=== PATIENT | female | born 1950 | race Caucasian/White ===

== ENCOUNTER 2020-02-22 15:46 | Inpatient (IN) | payer MEDICARE, OTHER ==
[~2020-02-22] VITALS: Ht 160 cm; Wt 112.1 kg
[~2020-02-22 15:46] MED LIST: ASPI-518 PO
[2020-02-22] MEDS ORDERED: VECURONIUM BROMIDE 10 MG/VIAL IV ONE ×2 (16:15→18:00)
[2020-02-22] MEDS ORDERED: VANCOMYCIN 1 G PREMIX 200 ML IV SCH (16:15)
[2020-02-22] MEDS ORDERED: PROPOFOL 10MG/ML 100ML 100 ML IV ONE (16:15)
[2020-02-22] MEDS ORDERED: ETOMIDATE 2MG/ML 10ML VIAL IV ONE (16:15)
[2020-02-22] MEDS ORDERED: PIPERACILLIN/TAZOBACTAM 3.375GM/50ML PREMIX IV ONE (16:15)
[2020-02-22] MEDS ORDERED: AZITHROMYCIN 500 MG in DEXT 5% WATER 250 ML IV SCH (16:30)
[2020-02-22 16:55] LABS: BG BASE EXCESS 3.3 mmol/L (-2.0-2.0); BG CARBOXYHEMOGLOBIN 1.2 % (0.5-1.5); BG DEOXYHEMOGLOBIN 0.2 % (0.0-5.0); BG FRACTION INSPIRED OXYGEN 100; BG HCO3 ACT 29.2 mmol/L (22.0-26.0); BG METHEMOGLOBIN 0.4 % (0.0-1.5); BG OXYGEN SATURATION 99.8 % (92.0-98.5); BG OXYHEMOGLOBIN 98.2 % (94.0-97.0); BG PCO2 49.1 mmHg (35.0-45.0); BG PH 7.392 (7.350-7.450); BG PO2 303.8 mmHg (75.0-100.0); BG SAMPLE SITE RIGHT RADIAL; BG TOTAL HEMOGLOBIN 14.9 g/dL (12.0-18.0); BG TOTAL RESPIRATORY RATE 17 b/min; BG VENT MODE VENT - AC
[2020-02-22] MEDS: PIPERACILLIN/TAZ 3.375G PREMIX 50 ML IV NR ×2 (17:24→17:56)
[2020-02-22 17:32] LABS: HEMATOCRIT. 42.4 % (36.0-48.0); HEMOGLOBIN. 13.9 g/dL (12.0-16.0); MEAN CORPUSCULAR HEMOGLOBIN 29.6 pg (28.0-32.0); MEAN CORPUSCULAR VOLUME 90.3 fL (81.0-99.0); MEAN PLATELET VOLUME 9.6 fl (7.4-10.4); PLATELET 204 x1000/uL (130-400); RED BLOOD CELL COUNT 4.69 mill/uL (4.2-5.4)
[2020-02-22 17:41] LABS: CHLORIDE 102 mEq/L (98-107)
[2020-02-22 17:42] LABS: CLARITY URINE CLOUDY (CLEAR); COLOR URINE DARK YELLOW (YELLOW); KETONES URINE 2+ (NEGATIVE); LEUKOCYTE ESTERASE URINE TRACE (NEGATIVE); NITRITE URINE NEGATIVE (NEGATIVE); OCCULT BLOOD URINE NEGATIVE (NEGATIVE); PH URINE 8.5 (4.5-8.0); PROTEIN URINE 1+ (NEGATIVE); SPECIFIC GRAVITY URINE 1.026 (1.005-1.030)
[2020-02-22 17:45] LABS: ETHANOL BLOOD < 10 mg/dL
[2020-02-22 17:49] LABS: CREATINE KINASE 420 IU/L (26-192)
[2020-02-22] MEDS ORDERED: SODIUM CHLORIDE 0.9% 10ML VIAL ONE (18:00)
[2020-02-22 18:02] LABS: CARBAMAZEPINE < 0.5 ug/mL (4-12); PHENOBARBITAL < 2.1 ug/mL (15.0-40.0); VALPROIC ACID < 3.0 ug/mL (50-100)
[2020-02-22 18:23] LABS: PLATELET ESTIMATE NORMAL
[2020-02-22 18:26] LABS: *AMPHETAMINES SCREEN URINE NEGATIVE (NEGATIVE); *BARBITURATES SCREEN URINE NEGATIVE (NEGATIVE)
[2020-02-22 18:28] LABS: *COCAINE SCREEN URINE NEGATIVE (NEGATIVE); CANNABINOID URINE SCREEN NEGATIVE (NEGATIVE); METHADONE URINE SCREEN NEGATIVE (NEGATIVE); OPIATES URINE SCREEN NEGATIVE (NEGATIVE); PHENCYCLIDINE URINE SCREEN NEGATIVE (NEGATIVE)
[2020-02-22 18:31] LABS: *BENZODIAZEPINES SCREEN URINE PRESUMTIVE POSITIVE (NEGATIVE)
[2020-02-23] VITALS (26 sets, daily range): BP systolic 133–169; BP diastolic 61–86
[2020-02-23] MEDS ORDERED: PROPOFOL 10MG/ML 100ML 100 ML IV SCH (03:45)
[2020-02-23] MEDS ORDERED: IOHEXOL-350 100 ML BOTTLE ONE (04:19)
[2020-02-23] MEDS ORDERED: PROPOFOL 10MG/ML 100ML 100 ML IV PRN (10:00)
[2020-02-23] MEDS ORDERED: IPRATROPIUM/ALBUTEROL 0.5-3(2.5)MG/3ML NEB HHN PRN (10:00)
[2020-02-23] MEDS ORDERED: LEVETIRACETAM 500 MG in SODIUM CHLORIDE 0.9% 100 ML IV SCH (10:30)
[2020-02-23] MEDS ORDERED: LEVETIRACETAM 1000MG PREMIX 100 ML IV SCH (11:00)
[2020-02-23] MEDS: CEFEPIME 2,000 MG in DEXT 5% WATER 100 ML IV SCH (11:21)
[2020-02-23] MEDS: ENOXAPARIN 40MG/0.4ML SYR SUBCUT SCH (11:22)
[2020-02-23] MEDS: PANTOPRAZOLE SODIUM 40 MG/VIAL IV SCH (11:22)
[2020-02-23] MEDS: AMLODIPINE 10MG TABLET PO SCH (11:22)
[2020-02-23 11:27] LABS: BG BASE EXCESS 4.5 mmol/L (-2.0-2.0); BG CARBOXYHEMOGLOBIN 0.3 % (0.5-1.5); BG FRACTION INSPIRED OXYGEN 40; BG METHEMOGLOBIN 0.3 % (0.0-1.5); BG OXYHEMOGLOBIN 96.4 % (94.0-97.0); BG PCO2 42.8 mmHg (35.0-45.0); BG PH 7.449 (7.350-7.450); BG PO2 90.8 mmHg (75.0-100.0); BG SAMPLE SITE RIGHT RADIAL; BG TOTAL RESPIRATORY RATE 14 b/min; BG VENT MODE VENT - AC
[2020-02-23] MEDS: IPRATROPIUM/ALBUTEROL 0.5-3(2.5)MG/3ML NEB HHN SCH ×2 (13:32→20:17)
[2020-02-23] MEDS: METRONIDAZOLE 500MG TABLET PO SCH ×2 (15:13→21:18)
[2020-02-23] MEDS ORDERED: DIPHENHYDRAMINE 50MG/ML VIAL IV PRN (15:45)
[2020-02-23] MEDS ORDERED: MORPHINE SULFATE 2 MG/ML CPJ (NOT FOR IM USE) IV PRN (15:45)
[2020-02-23] MEDS ORDERED: ACETAMINOPHEN 325MG TABLET PO PRN (15:45)
[2020-02-23] MEDS ORDERED: ACETAMINOPHEN 650MG SUPP PR PRN (15:45)
[2020-02-23] MEDS: DEXT 5%/0.45% NACL 1000ML 1,000 ML IV SCH (17:39)
[2020-02-23 18:26] LABS: BASOPHILS % 0.2 % (0.0-2.0); EOSINOPHILS % 1.3 % (0.0-5.0); HEMATOCRIT. 42.8 % (36.0-48.0); HEMOGLOBIN. 13.7 g/dL (12.0-16.0); LYMPHOCYTES % 11.6 % (20.0-50.0); MEAN CORPUSCULAR HEMOGLOBIN 28.9 pg (28.0-32.0); MEAN CORPUSCULAR VOLUME 90.4 fL (81.0-99.0); MEAN PLATELET VOLUME 9.8 fl (7.4-10.4); MONOCYTES % 7.1 % (2.0-8.0); NEUTROPHILS % 79.8 % (40.0-76.0); PLATELET 200 x1000/uL (130-400); RED BLOOD CELL COUNT 4.73 mill/uL (4.2-5.4); RED CELL DISTRIBUTION WIDTH 14.3 % (11.6-14.6)
[2020-02-23 18:36] LABS: CHLORIDE 103 mEq/L (98-107)
[2020-02-23 19:29] LABS: CREATINE KINASE 765 IU/L (26-192)
[2020-02-23 19:30] LABS: CREATINE KINASE MB FRACTION 3.9 ng/mL (0.5-3.6)
[2020-02-23] MEDS: BUDESONIDE 0.5MG/2ML NEB HHN SCH (20:17)
[2020-02-23] MEDS ORDERED: LACTULOSE 20G/30ML UDC PO PRN (21:00)
[2020-02-23] MEDS: LEVETIRACETAM 500MG PREMIX 100 ML IV SCH (21:13)
[2020-02-24] VITALS (50 sets, daily range): BP systolic 120–157; BP diastolic 50–108
[2020-02-24] MEDS: IPRATROPIUM/ALBUTEROL 0.5-3(2.5)MG/3ML NEB HHN SCH ×4 (00:27→20:29)
[2020-02-24] MEDS: CEFEPIME 2,000 MG in DEXT 5% WATER 100 ML IV SCH ×3 (00:39→23:56)
[2020-02-24] MEDS ORDERED: SODIUM CHLORIDE 0.9% 250 ML IV ONE (04:00)
[2020-02-24] MEDS ORDERED: FUROSEMIDE 40MG/4ML VIAL IVP SCH (04:00)
[2020-02-24] MEDS ORDERED: ALBU90AE2 IH (04:44)
[2020-02-24] MEDS ORDERED: METO-396 PO (04:44)
[2020-02-24] MEDS ORDERED: ATOR10TA69 PO (04:44)
[2020-02-24] MEDS ORDERED: SPIR25TA6 PO (04:44)
[2020-02-24] MEDS ORDERED: MOME13HF2 INH (04:45)
[2020-02-24 05:01] LABS: BASOPHILS % 0.2 % (0.0-2.0); EOSINOPHILS % 0.7 % (0.0-5.0); HEMATOCRIT. 39.7 % (36.0-48.0); HEMOGLOBIN. 13.1 g/dL (12.0-16.0); LYMPHOCYTES % 10.2 % (20.0-50.0); MEAN CORPUSCULAR HEMOGLOBIN 29.6 pg (28.0-32.0); MONOCYTES % 6.6 % (2.0-8.0); NEUTROPHILS % 82.3 % (40.0-76.0); PLATELET 171 x1000/uL (130-400); RED BLOOD CELL COUNT 4.41 mill/uL (4.2-5.4); RED CELL DISTRIBUTION WIDTH 14.2 % (11.6-14.6)
[2020-02-24 05:10] LABS: CHLORIDE 102 mEq/L (98-107)
[2020-02-24 05:19] LABS: PHOSPHORUS 2.8 mg/dL (2.5-4.9)
[2020-02-24 05:20] LABS: CREATINE KINASE 627 IU/L (26-192)
[2020-02-24] MEDS: METRONIDAZOLE 500MG TABLET PO SCH ×3 (06:22→23:02)
[2020-02-24] MEDS: BUDESONIDE 0.5MG/2ML NEB HHN SCH ×2 (07:41→20:30)
[2020-02-24] MEDS: ENOXAPARIN 40MG/0.4ML SYR SUBCUT SCH (08:48)
[2020-02-24] MEDS: PANTOPRAZOLE SODIUM 40 MG/VIAL IV SCH (08:48)
[2020-02-24] MEDS: AMLODIPINE 10MG TABLET PO SCH (08:49)
[2020-02-24] MEDS: LEVETIRACETAM 500MG PREMIX 100 ML IV SCH ×2 (09:03→21:49)
[2020-02-24] MEDS: DEXT 5%/0.45% NACL 1000ML 1,000 ML IV SCH (10:42)
[2020-02-24] MEDS ORDERED: POTASSIUM CHLORIDE 20MEQ/PACKET PO NR (12:45)
[2020-02-24] MEDS: ASPIRIN 81MG TABLET PO SCH (15:26)
[2020-02-24] MEDS: ATORVASTATIN CALCIUM 40MG TABLET PO SCH (23:02)
[2020-02-25] VITALS (95 sets, daily range): BP systolic 114–171; BP diastolic 21–93
[2020-02-25] MEDS: IPRATROPIUM/ALBUTEROL 0.5-3(2.5)MG/3ML NEB HHN SCH ×4 (02:21→20:30)
[2020-02-25] MEDS: DEXT 5%/0.45% NACL 1000ML 1,000 ML IV SCH ×2 (04:00→22:20)
[2020-02-25] MEDS: METRONIDAZOLE 500MG TABLET PO SCH ×3 (05:23→22:28)
[2020-02-25] MEDS: BUDESONIDE 0.5MG/2ML NEB HHN SCH ×2 (08:37→20:30)
[2020-02-25] MEDS: PANTOPRAZOLE SODIUM 40 MG/VIAL IV SCH (08:46)
[2020-02-25] MEDS: LEVETIRACETAM 500MG PREMIX 100 ML IV SCH ×2 (08:47→20:41)
[2020-02-25] MEDS: ASPIRIN 81MG TABLET PO SCH (08:47)
[2020-02-25] MEDS: AMLODIPINE 10MG TABLET PO SCH (08:47)
[2020-02-25] MEDS: ENOXAPARIN 30MG/0.3ML SYR SUBCUT SCH ×2 (08:48→20:57)
[2020-02-25] MEDS: CEFEPIME 2,000 MG in DEXT 5% WATER 100 ML IV SCH ×2 (12:24→23:30)
[2020-02-25 13:21] LABS: CHLORIDE 102 mEq/L (98-107)
[2020-02-25] MEDS ORDERED: POTASSIUM CHLORIDE 20MEQ/PACKET PO NR (15:30)
[2020-02-25] MEDS: ATORVASTATIN CALCIUM 40MG TABLET PO SCH (20:57)
[2020-02-26] VITALS (50 sets, daily range): BP systolic 105–173; BP diastolic 49–79
[2020-02-26] MEDS: IPRATROPIUM/ALBUTEROL 0.5-3(2.5)MG/3ML NEB HHN SCH ×4 (03:30→20:13)
[2020-02-26 04:58] LABS: BASOPHILS % 0.2 % (0.0-2.0); HEMATOCRIT. 39.4 % (36.0-48.0); HEMOGLOBIN. 13.2 g/dL (12.0-16.0); LYMPHOCYTES % 13.7 % (20.0-50.0); MEAN CORPUSCULAR VOLUME 89.7 fL (81.0-99.0); MEAN PLATELET VOLUME 9.8 fl (7.4-10.4); MONOCYTES % 6.5 % (2.0-8.0); NEUTROPHILS % 75.6 % (40.0-76.0); PLATELET 186 x1000/uL (130-400); RED BLOOD CELL COUNT 4.39 mill/uL (4.2-5.4); RED CELL DISTRIBUTION WIDTH 14.4 % (11.6-14.6)
[2020-02-26 05:07] LABS: CHLORIDE 104 mEq/L (98-107)
[2020-02-26] MEDS: METRONIDAZOLE 500MG TABLET PO SCH ×2 (05:40→14:00)
[2020-02-26 08:01] LABS: BG CARBOXYHEMOGLOBIN 0.5 % (0.5-1.5); BG DEOXYHEMOGLOBIN 2.9 % (0.0-5.0); BG FRACTION INSPIRED OXYGEN 40; BG HCO3 ACT 25.1 mmol/L (22.0-26.0); BG METHEMOGLOBIN 0.2 % (0.0-1.5); BG OXYGEN SATURATION 97.1 % (92.0-98.5); BG OXYHEMOGLOBIN 96.4 % (94.0-97.0); BG PH 7.437 (7.350-7.450); BG PO2 88.7 mmHg (75.0-100.0); BG SAMPLE SITE RIGHT RADIAL; BG TOTAL HEMOGLOBIN 14.1 g/dL (12.0-18.0); BG VENT MODE VENT - AC
[2020-02-26] MEDS: BUDESONIDE 0.5MG/2ML NEB HHN SCH ×2 (08:22→20:15)
[2020-02-26] MEDS: PANTOPRAZOLE SODIUM 40 MG/VIAL IV SCH (09:21)
[2020-02-26] MEDS: LEVETIRACETAM 500MG PREMIX 100 ML IV SCH ×2 (09:22→20:45)
[2020-02-26] MEDS: ASPIRIN 81MG TABLET PO SCH (09:23)
[2020-02-26] MEDS: AMLODIPINE 10MG TABLET PO SCH (09:23)
[2020-02-26] MEDS: ENOXAPARIN 30MG/0.3ML SYR SUBCUT SCH ×2 (09:25→20:47)
[2020-02-26] MEDS: CEFEPIME 2,000 MG in DEXT 5% WATER 100 ML IV SCH (12:31)
[2020-02-26] MEDS: DEXT 5%/0.45% NACL 1000ML 1,000 ML IV SCH (20:23)
[2020-02-26] MEDS: ATORVASTATIN CALCIUM 40MG TABLET PO SCH (20:45)
[2020-02-27] VITALS (32 sets, daily range): BP systolic 117–152; BP diastolic 47–73
[2020-02-27] MEDS: METRONIDAZOLE 500MG TABLET PO SCH ×4 (00:02→21:53)
[2020-02-27] MEDS: IPRATROPIUM/ALBUTEROL 0.5-3(2.5)MG/3ML NEB HHN SCH ×4 (02:01→20:18)
[2020-02-27] MEDS: LORAZEPAM 2MG/ML CPJ IV PRN (07:59)
[2020-02-27] MEDS: LEVETIRACETAM 500MG PREMIX 100 ML IV SCH ×2 (08:51→21:49)
[2020-02-27] MEDS: AMLODIPINE 10MG TABLET PO SCH (08:52)
[2020-02-27] MEDS: ASPIRIN 81MG TABLET PO SCH (08:52)
[2020-02-27] MEDS: PANTOPRAZOLE SODIUM 40 MG/VIAL IV SCH (08:52)
[2020-02-27] MEDS: ENOXAPARIN 30MG/0.3ML SYR SUBCUT SCH ×2 (08:52→21:53)
[2020-02-27] MEDS: DEXT 5%/0.45% NACL 1000ML 1,000 ML IV SCH ×2 (12:04→21:54)
[2020-02-27] MEDS: CEFEPIME 2,000 MG in DEXT 5% WATER 100 ML IV SCH ×3 (12:06)
[2020-02-27] MEDS: ATORVASTATIN CALCIUM 40MG TABLET PO SCH (21:53)
[2020-02-28] VITALS (35 sets, daily range): BP systolic 116–145; BP diastolic 48–111
[2020-02-28] MEDS: CEFEPIME 2,000 MG in DEXT 5% WATER 100 ML IV SCH ×2
[2020-02-28] MEDS: IPRATROPIUM/ALBUTEROL 0.5-3(2.5)MG/3ML NEB HHN SCH ×2 (01:51→08:47)
[2020-02-28] MEDS: LORAZEPAM 2MG/ML CPJ IV PRN (05:15)
[2020-02-28] MEDS: METRONIDAZOLE 500MG TABLET PO SCH (05:48)
[2020-02-28] MEDS: ENOXAPARIN 30MG/0.3ML SYR SUBCUT SCH (08:02)
[2020-02-28] MEDS: PANTOPRAZOLE SODIUM 40 MG/VIAL IV SCH (08:02)
[2020-02-28] MEDS: ASPIRIN 81MG TABLET PO SCH (08:02)
[2020-02-28] MEDS: LEVETIRACETAM 500MG PREMIX 100 ML IV SCH (08:02)
[2020-02-28] MEDS: AMLODIPINE 10MG TABLET PO SCH (08:02)
[2020-02-28] MEDS ORDERED: LORAZEPAM 2MG/ML CPJ IV PRN (13:30)
[2020-02-28] MEDS ORDERED: MORPHINE SULFATE 2 MG/ML CPJ (NOT FOR IM USE) IV PRN (13:30)
[2020-02-28] MEDS ORDERED: MORPHINE SULFATE 250 MG in DEXT 5% WATER 240 ML IV PRN (17:00)
[2020-02-29] VITALS: BP 126/63
[2020-02-29 04:00] VITALS: BP 110/47
[2020-02-29 08:00] VITALS: BP 110/50
== END 2020-02-29 10:05 | disposition expired | DRG 64 ==
LOC: ER 15:49 → EDBEDREQ 18:17 → MICUSO 02-23 08:14 → ENRESERV 02-23 08:44 → MICUSO 02-24 04:35 → 6EST 02-28 17:10
PROVIDERS: ADMIT Internal Medicine; ATTEND Internal Medicine
PROC: 5A1955Z Respiratory Ventilation, Greater than 96 Consecutive Hours (ICD-10-PCS; principal; 2020-02-23)
PROC: 0BH18EZ Insertion of Endotracheal Airway into Trachea, Via Natural or Artificial Opening Endoscopic (ICD-10-PCS; 2020-02-23)
PROC: 06HY33Z Insertion of Infusion Device into Lower Vein, Percutaneous Approach (ICD-10-PCS; 2020-02-23)
PROC: B54BZZA Ultrasonography of Right Lower Extremity Veins, Guidance (ICD-10-PCS; 2020-02-23)
DX: I63.40 Cerebral infarction due to embolism of unspecified cerebral artery (principal); I50.33 Acute on chronic diastolic (congestive) heart failure; G93.41 Metabolic encephalopathy; J96.01 Acute respiratory failure with hypoxia; J69.0 Pneumonitis due to inhalation of food and vomit; E44.1 Mild protein-calorie malnutrition; J45.901 Unspecified asthma with (acute) exacerbation; N39.0 Urinary tract infection, site not specified; Z68.41 Body mass index [BMI] 40.0-44.9, adult; G40.909 Epilepsy, unspecified, not intractable, without status epilepticus; I11.0 Hypertensive heart disease with heart failure; E66.01 Morbid (severe) obesity due to excess calories; E78.5 Hyperlipidemia, unspecified; Z20.828 Contact with and (suspected) exposure to other viral communicable diseases; Z66 Do not resuscitate; Z79.51 Long term (current) use of inhaled steroids; Z79.82 Long term (current) use of aspirin; Z79.899 Other long term (current) drug therapy; Z88.8 Allergy status to other drugs, medicaments and biological substances; D72.829 Elevated white blood cell count, unspecified
CPT/HCPCS: 36415; 36600; 70544; 70551; 71045; 71275; 80048; 80053; 80061; 80156; 80165; 80184; 80185; 80305; 80320; 81003; 82140; 82375; 82550; 82553; 82805; 82962; 83605; 83735; 83880; 84100; 84443; 84478; 84484; 85025; 85379; 86850; 86900; 87070; 87635; 87804; 93005; 93306; 93880; 93970; 94002; 94003; 94640; 95816; 99291; A6261; C9113; J0456; J0692; J1200; J1650; J1940; J1953; J2060; J2270; J2274; J2543; J2704; J3370; J3490; J7060; J7626; Q9967; A4315; G0480